=== PATIENT | female | born 2005 | race Hispanic/Latino ===

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

== ENCOUNTER → 2025-01-26 11:36 | Outpatient (CLI) | payer OTHER, SELFPAY ==
[2025-01-26 12:28] LABS: Add Manual Diff / Slide Review NO; Hematocrit 38.7 % (36-46); Hemoglobin 13.1 g/dL (12.0-16.0); Lymphocytes Absolute Auto 1400 /uL (1100-4500); Mean Corpuscular HGB Conc 34.0 % (30-36); Mean Corpuscular Hemoglobin 28.8 PG (26-34); Mean Corpuscular Volume 84.7 fL (80-100); Platelet Count 179 X10^3/uL (150-400)
[2025-01-26 14:27] LABS: Vitamin D 25 Hydroxy (D3) 45.8 ng/mL (30.0-100.0)
== END ==
PROVIDERS: PCP Family Medicine; Referring Provider Family Medicine; Visit Provider Family Medicine
DX: D64.9 Anemia, unspecified (principal); B99.9 Unspecified infectious disease; E55.9 Vitamin D deficiency, unspecified
CPT/HCPCS: 36415; 82306; 85025